=== PATIENT | female | born 1935 | race Caucasian/White ===

== ENCOUNTER 2017-03-08 10:28 | Emergency (ER) | payer MEDICARE ==
--- NOTE | 2017-03-08 11:03 | RAD ---
HISTORY: Left facial droop COMPARISONS: None TECHNIQUE: Multiple contiguous axial CT scans were obtained of the head without intravenous contrast. FINDINGS: HEMORRHAGE/INFARCT: There is no hemorrhage or acute infarct. MASSES/SHIFT: There is no mass or shift. EXTRA-AXIAL SPACES: There are no extra-axial fluid collections. SULCI AND VENTRICLES: The sulci and ventricles are normal in size and position for the patient's stated age. CEREBRUM: There is hypoattenuation of the periventricular and subcortical white matter. BRAINSTEM: There are no focal parenchymal abnormalities. CEREBELLUM: There are no focal parenchymal abnormalities. VESSELS: The vessels are grossly normal. PARANASAL SINUSES: The paranasal sinuses are clear. ORBITS: The orbits are unremarkable. BONES AND SOFT TISSUE: No bone or soft tissue abnormalities are noted. OTHER: None IMPRESSION: 1. NO ACUTE INTRACRANIAL PATHOLOGY. 2. CHRONIC SMALL VESSEL ISCHEMIC CHANGE.
--- NOTE | 2017-03-08 11:12 | RAD ---
HISTORY: Facial droop COMPARISONS: April 26, 2015 VIEWS: 2: Frontal and lateral views of the chest. FINDINGS: CARDIOMEDIASTINAL SILHOUETTE: The cardiomediastinal silhouette is normal. ZAN: The zan are normal. PLEURA: The costophrenic angles are sharp. No pleural abnormalities are noted. LUNG PARENCHYMA: The lungs are clear. ABDOMEN: The upper abdomen is clear. There is no subphrenic gas. BONES AND SOFT TISSUES: No bone or soft tissue abnormalities are noted. OTHER: None. IMPRESSION: NO ACTIVE CARDIOPULMONARY DISEASE.
[2017-03-08 11:29] LABS: Hematocrit 40 % (35-47); Hemoglobin 14.2 g/dl (12.0-16.0); Mean Corpuscular HGB Conc 35 g/dl (31-36); Mean Corpuscular Hemoglobin 32 pg (27-31); Mean Corpuscular Volume 89 fL (80-97); Mean Platelet Volume 7 um3 (7.4-10.4); Red Blood Count 4.51 10^6/ul (4.0-5.4); Red Cell Distribution Width 13 % (10.5-15)
[2017-03-08 11:45] LABS: BUN/Creatinine Ratio 26.9 (8-20); Calcium 9.6 mg/dL (8.6-10.3); EGFR African American 108.9 (>60); EGFR Non-African American 84.7 (>60); Globulin 3.2 g/dL (2-4); HDL Cholesterol 59.5 mg/dL; Total Bilirubin 0.5 mg/dL (0.2-1.0); Total Protein 7.2 g/dL (6.4-8.9)
[2017-03-08 13:51] VITALS: BP 163/68
--- NOTE | 2017-03-08 18:53 | ED ---
Ana Dobbs Edward, scribed for Skip Jack MD on 03/08/17 at 1040 . Neurological HPI - HPI Summary HPI Summary: 82 y/o female presents to the ED c/o mild L side facial droop starting this morning after waking up. Denies other neurological deficits, including weakness and blurred vision. Denies any pain. The symptoms are not aggravated or alleviated by anything. - History of Current Complaint Chief Complaint: EDNeurologicalDeficit Stated Complaint: FACIAL DROOPING Time Seen by Provider: 03/08/17 10:34 Hx Obtained From: Patient Onset/Duration: Sudden Onset, Still Present Onset Severity: Mild Current Severity: Mild Character: Other: - Facial droop Aggravating: Nothing Alleviating: Nothing Associated Signs and Symptoms: Positive: Weakness - L side facial droop - Allergy/Home Medications Allergies/Adverse Reactions: Allergies Allergy/AdvReac Type Severity Reaction Status Date / Time No Known Allergies Allergy Verified 03/08/17 10:37 PMH/Surg Hx/FS Hx/Imm Hx Endocrine/Hematology History: Denies: Hx Diabetes, Hx Thyroid Disease Cardiovascular History: Reports: Hx Hypertension Denies: Hx Pacemaker/ICD, Other Cardiovascular Problems/Disorders Respiratory History: Denies: Hx Asthma, Hx Chronic Obstructive Pulmonary Disease (COPD), Other Respiratory Problems/Disorders GI History: Reports: Hx Irritable Bowel - ON MED Comment Only: Hx Gall Bladder Disease - Gallbladder removed 1992, Other GI Disorders - Pancreatitis History: Reports: Other Problems/Disorders - 1 mo of dark cloudy urine Denies: Hx Renal Disease Musculoskeletal History: Reports: Hx Arthritis - BACK, Hx Back Problems Denies: Hx Osteoporosis Sensory History: Reports: Hx Contacts or Glasses - GLASSES Denies: Hx Hearing Aid Opthamlomology History: Reports: Hx Contacts or Glasses - GLASSES Neurological History: Denies: Hx Dementia, Hx Seizures Psychiatric History: Reports: Hx Depression Denies: Hx Substance Abuse - Cancer History Hx Chemotherapy: No Hx Radiation Therapy: No - Surgical History Surgery Procedure, Year, and Place: - BOWEL OBSTRUCTION. 1985-RESECTION PANCREAS BOWEL / HERNIA,. 1992 [place]. [place] [facility] [place] Anesthesia Reactions: No Infectious Disease History: Denies: Hx Hepatitis, Hx Human Immunodeficiency Virus (HIV) - Social History Alcohol Use: Rare Alcohol Amount: 1 MONTH Substance Use Type: Reports: None Smoking Status (MU): Former Smoker Type: Cigarettes Amount Used/How Often: 1 PPD Length of Time of Smoking/Using Tobacco: 15 YRS Have You Smoked in the Last Year: No Review of Systems Constitutional: Negative Eyes: Negative ENT: Negative Cardiovascular: Negative Respiratory: Negative Gastrointestinal: Negative Genitourinary: Negative Musculoskeletal: Negative Skin: Negative Positive: Weakness - L side facial droop Psychological: Normal All Other Systems Reviewed And Are Negative: Yes Physical Exam - Summary Physical Exam Summary: VITAL SIGNS: Reviewed. GENERAL: Patient is a well-developed and nourished female who is lying comfortable in the stretcher. Patient is not in any acute respiratory distress. HEAD AND FACE: No signs of trauma. No ecchymosis, hematomas or skull depressions. No sinus tenderness. EYES: PERRLA, EOMI x 2, No injected conjunctiva, no nystagmus. No photophobia. EARS: Hearing grossly intact. Ear canals and tympanic membranes are within normal limits. MOUTH: Oropharynx within normal limits. NECK: Supple, trachea is midline, no adenopathy, no JVD, no carotid bruit, no c- spine tenderness, neck with full ROM. No meningeal signs, no Kernig's or brudzinskis signs. CHEST: Symmetric, no tenderness at palpation LUNGS: Clear to auscultation bilaterally. No wheezing or crackles. CVS: Regular rate and rhythm, S1 and S2 present, no murmurs or gallops appreciated. ABDOMEN: Soft, non-tender. No signs of distention. No rebound no guarding, and no masses palpated. Bowel sounds are normal. EXTREMITIES: FROM in all major joints, no edema, no cyanosis or clubbing. NEURO: Alert and oriented x 3. No acute neurological deficits. Speech is normal and follows commands. SKIN: Dry and warm GCS: 15 (unless he states otherwise) Triage Information Reviewed: Yes Vital Signs On Initial Exam: Initial Vitals Temp Pulse Resp BP Pulse Ox 98.1 F 68 18 163/76 95 03/08/17 10:33 03/08/17 10:33 03/08/17 10:33 03/08/17 10:33 03/08/17 10:33 Vital Signs Reviewed: Yes Diagnostics - Vital Signs Vital Signs Temp Pulse Resp BP Pulse Ox 03/08/17 13:30 68 21 163/68 93 03/08/17 13:00 65 12 161/66 92 03/08/17 12:30 65 17 171/78 93 03/08/17 12:00 67 18 160/67 94 03/08/17 11:30 151/62 03/08/17 11:07 76 12 94 03/08/17 11:06 186/74 03/08/17 10:33 98.1 F 68 18 163/76 95 - Laboratory Lab Results: Lab Results 03/08/17 03/08/17 03/08/17 Range/Units 11:15 11:15 11:15 WBC 9.0 (3.5-10.8) 10^3/ul RBC 4.51 (4.0-5.4) 10^6/ul Hgb 14.2 (12.0-16.0) g/dl Hct 40 (35-47) % MCV 89 (80-97) fL MCH 32 H (27-31) pg MCHC 35 (31-36) g/dl RDW 13 (10.5-15) % Plt Count 276 (150-450) 10^3/ul MPV 7 L (7.4-10.4) um3 Neut % (Auto) 64.7 (38-83) % Lymph % (Auto) 23.8 L (25-47) % [place] % (Auto) 7.9 (1-9) % Eos % (Auto) 2.6 (0-6) % Baso % (Auto) 1.0 (0-2) % Absolute Neuts (auto) 5.8 (1.5-7.7) 10^3/ul Absolute Lymphs (auto) 2.1 (1.0-4.8) 10^3/ul Absolute Monos (auto) 0.7 (0-0.8) 10^3/ul Absolute Eos (auto) 0.2 (0-0.6) 10^3/ul Absolute Basos (auto) 0.1 (0-0.2) 10^3/ul Absolute Nucleated RBC 0.01 10^3/ul Nucleated RBC % 0.1 INR (Anticoag Therapy) 0.88 L (0.89-1.11) Sodium 135 (133-145) mmol/L Potassium 4.0 (3.5-5.0) mmol/L Chloride 100 L (101-111) mmol/L Carbon Dioxide 27 (22-32) mmol/L Anion Gap 8 (2-11) mmol/L BUN 18 (6-24) mg/dL Creatinine 0.67 (0.51-0.95) mg/dL Est GFR ( Amer) 108.9 (>60) Est GFR (Non-Af Amer) 84.7 (>60) BUN/Creatinine Ratio 26.9 H (8-20) Glucose 154 H (70-100) mg/dL Lactic Acid (0.5-2.0) mmol/L Calcium 9.6 (8.6-10.3) mg/dL Total Bilirubin 0.50 (0.2-1.0) mg/dL AST 14 (13-39) U/L ALT 16 (7-52) U/L Alkaline Phosphatase 90 (34-104) U/L Troponin I 0.00 (<0.04) ng/mL Total Protein 7.2 (6.4-8.9) g/dL Albumin 4.0 (3.2-5.2) g/dL Globulin 3.2 (2-4) g/dL Albumin/Globulin Ratio 1.3 (1-3) Triglycerides 237 mg/dL Cholesterol 170 mg/dL LDL Cholesterol 63 mg/dL HDL Cholesterol 59.5 mg/dL // Range/Units 11:15 WBC (3.5-10.8) 10^3/ul RBC (4.0-5.4) 10^6/ul Hgb (12.0-16.0) g/dl Hct (35-47) % MCV (80-97) fL MCH (27-31) pg MCHC (31-36) g/dl RDW (10.5-15) % Plt Count (150-450) 10^3/ul MPV (7.4-10.4) um3 Neut % (Auto) (38-83) % Lymph % (Auto) (25-47) % [place] % (Auto) (1-9) % Eos % (Auto) (0-6) % Baso % (Auto) (0-2) % Absolute Neuts (auto) (1.5-7.7) 10^3/ul Absolute Lymphs (auto) (1.0-4.8) 10^3/ul Absolute Monos (auto) (0-0.8) 10^3/ul Absolute Eos (auto) (0-0.6) 10^3/ul Absolute Basos (auto) (0-0.2) 10^3/ul Absolute Nucleated RBC 10^3/ul Nucleated RBC % INR (Anticoag Therapy) (0.89-1.11) Sodium (133-145) mmol/L Potassium (3.5-5.0) mmol/L Chloride (101-111) mmol/L Carbon Dioxide (22-32) mmol/L Anion Gap (2-11) mmol/L BUN (6-24) mg/dL Creatinine (0.51-0.95) mg/dL Est GFR ( Amer) (>60) Est GFR (Non-Af Amer) (>60) BUN/Creatinine Ratio (8-20) Glucose (70-100) mg/dL Lactic Acid 2.0 (0.5-2.0) mmol/L Calcium (8.6-10.3) mg/dL Total Bilirubin (0.2-1.0) mg/dL AST (13-39) U/L ALT (7-52) U/L Alkaline Phosphatase (34-104) U/L Troponin I (<0.04) ng/mL Total Protein (6.4-8.9) g/dL Albumin (3.2-5.2) g/dL Globulin (2-4) g/dL Albumin/Globulin Ratio (1-3) Triglycerides mg/dL Cholesterol mg/dL LDL Cholesterol mg/dL HDL Cholesterol mg/dL Result Diagrams: 03/08/17 11:15 03/08/17 11:15 Lab Statement: Any lab studies that have been ordered have been reviewed, and results considered in the medical decision making process. - Radiology CXR Xray Interpretation: No Acute Changes - NO ACTIVE CARDIOPULMONARY DISEASE Radiology Interpretation Completed By: Radiologist - CT BRAIN CT CT Interpretation: No Acute Changes - 1. NO ACUTE INTRACRANIAL PATHOLOGY. 2. CHRONIC SMALL VESSEL ISCHEMIC CHANGE. CT Interpretation Completed By: Radiologist - EKG 1 EKG Interpretation: 11:09 - SR @ [address] ELEVATIONS. NO CHANGE FROM Course/Dx - Course Assessment/Plan: 82 y/o female presents to the ED c/o mild L side facial droop starting this morning after waking up. Denies other neurological deficits, including weakness and blurred vision. Denies any pain. The symptoms are not aggravated or alleviated by anything. EKG @ 11:09 - SR @ [address] ELEVATIONS. NO CHANGE FROM 10/13/12. CXR SHOWS NO ACTIVE CARDIOPULMONARY DISEASE. BRAIN CT SHOWS 1. NO ACUTE INTRACRANIAL PATHOLOGY. 2. CHRONIC SMALL VESSEL ISCHEMIC CHANGE. Test results are without significant abnormalities except glucose 154. At this time the daughter came to the ED and reported that the lips are not normal for her. The swelling in R upper and lower lips were there since last night. Pt thinks she has L facial droop b/c of the swelling of the lip. Pt developed a canker sore and that is why she may have developed swelling; however, there are no sigsn of cold sores. Since there are no other sx , and the pt daughter is comfortable taking the pt home and will bring her back if the pt develops other symptoms such as upper and lower extremity weakness and slurred speech, the pt will be d/c home. The pt is hemodynamically stable, A &Ox3. Pt ambulated out of the ED. - Differential Dx Differential Diagnoses Neuro: Positive: Cerebrovascular Accident, Seizure Disorder, Transient Ischemic Attack - Diagnoses Provider Diagnoses: Swelling of both lips - Physician Notifications Discussed Care Of Patient With: Clyde Gong Time Discussed With Above Provider: 13:31 Discharge - Discharge Plan Condition: Stable Disposition: HOME Patient Education Materials: Edema (ED) Referrals: Homa Patino NP [Primary Care Provider] - If Needed (PLEASE F/U IN 3-5 DAYS OR NEEDED) The documentation as recorded by the Ana tejada Edward accurately reflects the service I personally performed and the decisions made by , Skip Jack MD.
== END 2017-03-08 13:51 | disposition home or self-care (01) ==
LOC: ED 10:28
DX: R22.0 Localized swelling, mass and lump, head (principal); R53.1 Weakness; Z87.891 Personal history of nicotine dependence; R29.810 Facial weakness; Z86.79 Personal history of other diseases of the circulatory system
CPT/HCPCS: 36415; 70450; 71020; 80053; 80061; 83605; 84484; 85025; 85610; 93005; 99282